=== PATIENT | male | born 1955 | race Caucasian/White ===

== ENCOUNTER 2022-07-29 10:55 | Emergency (ER) | payer SELFPAY ==
[~2022-07-29] VITALS: Ht 177.8 cm; Wt 78.0 kg
--- NOTE | 2022-07-29 11:59 | NUR ---
Brought by paramedics, complaining of severe back pain
--- NOTE | 2022-07-29 11:59 | NUR ---
Awaiting for MD to see
[2022-07-29] MEDS ORDERED: HYDR-4303 PO (12:34)
[2022-07-29] MEDS ORDERED: ZOLP10TA2 PO (12:34)
[2022-07-29] MEDS ORDERED: HYDROCODONE/APAP 5/325MG TABLET PO ONE (14:00)
[2022-07-29] MEDS ORDERED: OXYC5CAP18 PO (14:01)
[2022-07-29] MEDS ORDERED: NAPR-1192 PO (14:01)
[2022-07-29] MEDS ORDERED: HYDROCODONE/APAP 5/325MG TABLET ONE (14:08)
--- NOTE | 2022-07-29 14:17 | NUR ---
Patient discharged to home in stable condition. Written and verbal after care instructions given. Patient verbalizes understanding of instruction.
[2022-07-29 14:18] VITALS: BP 145/78
== END 2022-07-29 14:19 | disposition home or self-care (01) ==
LOC: ER 12:15
DX: G89.29 Other chronic pain (principal); M25.552 Pain in left hip; M25.551 Pain in right hip; I10 Essential (primary) hypertension; Z79.899 Other long term (current) drug therapy
CPT/HCPCS: 72170-TC; 73502